=== PATIENT | male | born 1995 | race Caucasian/White ===

== ENCOUNTER 2017-01-12 15:07 | Emergency (ER) | payer OTHER ==
[~2017-01-12] VITALS: Ht 190.5 cm; Wt 70.0 kg
[~2017-01-12 15:07] MED LIST: LORTS PO; Z.0.NO CURRENT MEDS; [UNRECOGNIZED DRUG - CODE] PO
[2017-01-12 15:37] VITALS: BP 110/54; PULSE 87; RESP 18; TEMP 98.6; O2SAT 98
--- NOTE | 2017-01-12 16:10 | RADRPT ---
EXAM DATE/TIME: 01/12/2017 15:57 [place] COMPARISON: No previous studies available for comparison. INDICATIONS : Dislocation. MEDICAL HISTORY : None. SURGICAL HISTORY : None. ENCOUNTER: Initial ACUITY: 1 day PAIN SCORE: 7/10 LOCATION: Left knee FINDINGS: There is a small knee joint effusion. No fracture or dislocation. Normal bone density. CONCLUSION: Small effusion. George Fernandez MD on January 12, 2017 at 16:08 Board Certified Radiologist. This report was verified electronically.
--- NOTE | 2017-01-12 16:17 | PD ---
HPI Chief Complaint: Injury Time Seen by Provider: 15:37 Travel History International Travel<30 days: No Contact w/Intl Traveler<30days: No Traveled to known affect area: No History of Present Illness HPI This is a 21-year-old male who presents to the emergency department having injured his left knee. He was lifting a window at work when he felt his knee dislocate. He's had any dislocations in the past. He describes his pain as severe, constant, 10 out of 10 and is unable to move his left knee. He has not seen An orthopedic doctor about this problem before. He is usually able to relocate it himself. PFSH Past Medical History Medical History: Denies Significant Hx Past Surgical History Surgical History: No Previous Surgery Social History Alcohol Use: No Tobacco Use: No Substance Use: No Allergies-Medications (Allergen,Severity, Reaction): Coded Allergies: No Known Allergies (Unverified , 11/14/11) Reported Meds & Prescriptions Reported Meds & Active Scripts Active Phenergan 6.25 Mg Udc (Promethazine HCl) 6.25 Mg/5 Ml Syrp 12.5-25 Mg PO Q6- 8HPRN Lortab Elixir 5 Mg/10 Ml (Acetaminophen/Hydrocodone Bitart) 10 Ml Elix 10 Ml PO Q4-6HPRN Reported No Current Meds (Miscellaneous Medication) Misc Review of Systems Except as stated in HPI: all other systems reviewed are Neg Physical Exam Narrative GENERAL:Well appearing, no acute distress SKIN: Focused skin assessment warm and dry. HEAD: Atraumatic. Normocephalic. EYES: Pupils equal and round. No injection or drainage. ENT: Moist mucous membranes NECK: Trachea midline. CARDIOVASCULAR: Regular rate and rhythm. No murmur appreciated. 2+ left DP pulse with normal capillary refill. RESPIRATORY: Clear to auscultation. Breath sounds equal bilaterally. GASTROINTESTINAL: Abdomen soft, non-tender, nondistended. MUSCULOSKELETAL: Grossly dislocated left patella NEUROLOGICAL: Awake and alert. No obvious cranial nerve deficits. Moving all extremities. PSYCHIATRIC: Appropriate mood and affect; insight and judgment normal. Data Data Last Documented VS Vital Signs Date Time Temp Pulse Resp B/P (MAP) Pulse Ox O2 Delivery O2 Flow Rate FiO2 01/12/17 15:37 98.6 87 18 110/54 (72) 98 01/12/17 15:37 Room Air Orders Orders Knee, Ltd (1 Or 2vws) (01/12/17 ) ^ Knee Immobilizer (01/12/17 16:07) MDM Medical Decision Making Medical Screen Exam Complete: Yes Emergency Medical Condition: Yes Interpretation(s) Afebrile, no tachycardia, normotensive Differential Diagnosis patellar dislocation, knee dislocation, knee effusion Narrative Course This is a 21 year old male who presents to the emergency department having sustained a patellar dislocation. This is happened to him before. Patient has a normal neurovascular exam. It was reduced at bedside. X-ray confirms no acute fracture. He'll be placed in knee immobilizer and was advised to follow- up with orthopedics. Diagnosis Primary Impression: Patellar dislocation Qualified Codes: S83.005A - Unspecified dislocation of left patella, initial encounter Patient Instructions: General Instructions Additional Instructions: If you develop any weakness, numbness, severe pain or coolness of your leg return to the emergency department. Med/Other Pt SpecificInfo: No Change to Meds Disposition: 01 DISCHARGE HOME Condition: Stable Janel Craven MD Jan 12, 2017 16:17
== END 2017-01-12 16:58 | disposition home or self-care (01) ==
LOC: NEPD 15:07
DX: S83.005A Unspecified dislocation of left patella, initial encounter (principal); Z87.39 Personal history of other diseases of the musculoskeletal system and connective tissue; X50.0XXA Overexertion from strenuous movement or load, initial encounter; Y99.0 Civilian activity done for income or pay
CPT/HCPCS: 27560; 73560; 99284; E0113